=== PATIENT | male | born 1955 | race African-American/Black ===

== ENCOUNTER 2021-04-07 14:18 | Emergency (ER) | payer MEDICAID, MEDICARE, OTHER ==
[~2021-04-07] VITALS: Ht 182.9 cm; Wt 108.9 kg
[~2021-04-07 14:18] MED LIST: GLIM4TAB; METF100097
[2021-04-07 15:59] VITALS: BP 112/60
== END 2021-04-07 17:07 | disposition home or self-care (01) ==
LOC: ER 14:18
DX: M17.12 Unilateral primary osteoarthritis, left knee (principal)
CPT/HCPCS: 73502; 73562